=== PATIENT | male | born 1995 | race Two or more races ===

== ENCOUNTER 2024-10-01 12:46 | Emergency (ER) | payer BC ==
[~2024-10-01] VITALS: Ht 182.9 cm; Wt 145.0 kg
--- OUTSIDE RECORDS SUMMARY | ~2024-10-01 | XMS | Continuity of Care Document ---
Demographics + + + | Address | [address] | | | [place] [address] | + + + | Preferred Language | Unknown | + + + | Marital Status | unknown | + + + | Yazidism Affiliation | Unknown | + + + | Race | White | + + + | Ethnic Group | Unknown | + + + Author + + + | Author | [facility] | + + + | Organization | [facility] | + + + | Address | [address] | | | [place] [address] | + + + | Phone | | + + + Care Team Providers + + + + | Care Administrative Supervisor Name | Role | Phone | + + + + Unavailable | Unavailable | + + + + Allergies No information. Encounters No information. Functional Status No information. Immunizations No information. Medications No information. Problems + + + + | date | description | facility | + + + + | 2024-07-28 16:41:15 | Morbid (severe) obesity | [facility] | | | due to excess calories | Center | | | (HCC) | | + + + + | 2024-07-28 16:41:15 | Contact with and | [facility] | | | (suspected) exposure to | Center | | | infections with a | | | | predominantly sexual mode | | | | of transmission | | + + + + Procedures No information. Results/Labs No information. Social History +--------+ + + | date | description | facility | +--------+ + + Vital Signs No information."
[~2024-10-01 12:46] MED LIST: ADDERALL XR 3030 MG PO; AMPHETAMINE SAL10 MG PO; CEPHALEXIN500 M1 PO; ONDANSETRON HCL4 MG PO; PYRIDIUM200 MG PO
[2024-10-01] MEDS ORDERED: ondansetron HCL 4 MG/2 ML VIAL IV ONE (13:00)
[2024-10-01] MEDS ORDERED: HYDROmorphone HCL 1 MG/ML SYR IV ONE (13:00)
[2024-10-01] MEDS ORDERED: SODIUM CHLORIDE 0.9% 1,000 ML IV ONE (13:00)
[2024-10-01 13:03] LABS: BASOPHILS 0.2 % (0-2); EOSINOPHILS 1.2 % (0-6); HEMOGLOBIN 16.3 g/dL (12.0-18.0); LYMPHOCYTES 30.2 % (24-44); MCH 29.9 (27-36); MCHC 35.5 g/dl (30-36); MCV 84.3 fl (81-99); MONOCYTES 10.4 % (0-12); PLATELET COUNT 384 K/uL (140-440); RBC 5.46 M/ul (4.3-5.7); RDW 13.1 (10.5-15.0)
[2024-10-01 13:18] LABS: PARTIAL THROMBOPLASTIN TIME 24.2 Sec (22.9-41.3)
[2024-10-01 13:19] LABS: INR 0.99 (0.80-1.30); PROTIME 12.4 Sec (11.2-14.2)
[2024-10-01 13:24] LABS: ALBUMIN 3.9 g/dL (3.4-5.0); ALBUMIN/GLOBULIN RATIO 1.05 (1.1-2.4); ALKALINE PHOSPHATASE 97 U/L (46-116); ALT (SGPT) 51 U/L (14-59); ANION GAP 15.1 (7-21); AST (SGOT) 23 U/L (15-37); BILIRUBIN, TOTAL 0.9 ng/dL (0.2-1.0); BUN/CREATININE RATIO 11.88 (6.0-28.6); CALCIUM 8.8 mg/dL (8.5-10.1); CARBON DIOXIDE 26 mmol/L (21-32); CHLORIDE 103 mmol/L (98-107); CREATININE, SERUM 1.01 mg/dL (0.70-1.30); GLOMERULAR FILTRATION RATE,EST 103 mL/min (>60); MAGNESIUM 2.2 mg/dL (1.8-2.4); POTASSIUM 3.1 mmol/L (3.5-5.1); PROTEIN, TOTAL 7.6 g/dL (6.4-8.2); UREA NITROGEN 12 mg/dL (7-18)
[2024-10-01 13:38] LABS: INFLUENZA B NAA NEGATIVE (NEGATIVE); RESPIRATORY SYNCYTIAL VIR NAA NEGATIVE (NEGATIVE)
[2024-10-01 13:56] LABS: BILIRUBIN, URINE NEGATIVE (negative); BLOOD/HGB, URINE NEGATIVE (Negative); KETONE, URINE NEGATIVE (Negative); LEUK ESTERASE, URINE NEGATIVE (negative); NITRITE, URINE NEGATIVE (negative); PH, URINE 6.5 (5-7)
[2024-10-01 14:49] VITALS: BP 142/82
--- NOTE | 2024-10-02 21:53 | EKG ---
[facility] [address] [place] [address] Signed Normal sinus rhythm with sinus arrhythmia Normal ECG No previous ECGs available Confirmed by Candy Joshi MD () on 10/02/2024 9:53:31 PM Electronically Signed By: CANDY JOSHI MD 10/02/[id number] PATIENT NAME: CORBY RHODES Electrocardiogram DATE OF : [birth year] PHYSICIAN: CANDY JOSHI MD REPORT #: [id number] REPORT IS CONFIDENTIAL AND NOT TO BE RELEASED WITHOUT AUTHORIZATION
== END 2024-10-01 14:48 | disposition home or self-care (01) ==
LOC: ED 12:46
PROVIDERS: Emergency Medicine
DX: R07.89 Other chest pain (principal); R10.11 Right upper quadrant pain; Z79.899 Other long term (current) drug therapy
CPT/HCPCS: 36415; 71045; 74176; 80053; 81003; 83690; 83735; 83880; 84484; 85025; 85610; 85730; 87502; 93005; 93010; 96374; 96375; 99285-25; J1171; J2405; J7030; U0002

== ENCOUNTER 2025-02-28 03:14 | Emergency (ER) | payer BC ==
[~2025-02-28] VITALS: Ht 182.9 cm; Wt 150.0 kg
[2025-02-28 03:31] LABS: BILIRUBIN, URINE POSITIVE (negative); BLOOD/HGB, URINE LARGE (Negative); KETONE, URINE NEGATIVE (Negative); LEUK ESTERASE, URINE SMALL (negative); NITRITE, URINE POSITIVE (negative)
[2025-02-28 03:36] LABS: EPITHELIAL CELLS, URINE SQUAMOUS 1+ /lpf (0-1+); RED BLOOD CELLS, URINE >50 /hpf (0-5)
[2025-02-28 03:38] LABS: BACTERIA, URINE 1+ /hpf (negative); CASTS, URINE NONE SEEN \\lpf; COLLECTION TYPE, URINE CLEAN CATCH; CRYSTALS, URINE NONE SEEN (0-1+); REFLEX CULTURE, URINE No (No)
[2025-02-28] MEDS ORDERED: PHENAZOPYRIDINE HCL 100 MG TAB PO ONE (03:45)
[2025-02-28] MEDS ORDERED: CEPHALEXIN MONOHYDRATE 500 MG CAP PO ONE (03:45)
[2025-02-28] MEDS ORDERED: CEPHALEXIN500 M1 PO (03:50)
[2025-02-28 04:00] VITALS: BP 165/97
[2025-03-01] MEDS ORDERED: PYRIDIUM200 MG PO (03:26)
== END 2025-02-28 04:00 | disposition home or self-care (01) ==
LOC: ED 03:14
PROVIDERS: Emergency Medicine
DX: N39.0 Urinary tract infection, site not specified (principal); Z79.899 Other long term (current) drug therapy
CPT/HCPCS: 81001; 99283; A9270

== ENCOUNTER 2025-03-01 02:20 | Emergency (ER) | payer BC ==
[~2025-03-01] VITALS: Ht 182.9 cm; Wt 150.0 kg
--- OUTSIDE RECORDS SUMMARY | 2025-03-01 02:23 | XMS ---
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 Merle has no Care Guidelines for this patient. [facility] V[facility] (12 MO.) [facility] NOTE: Visits indicate total known visits. 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
[2025-03-01] MEDS ORDERED: FAMOTIDINE 20 MG/ 2 ML VIAL IV ONE (02:45)
[2025-03-01] MEDS ORDERED: ondansetron HCL 4 MG/2 ML VIAL IV ONE (02:45)
[2025-03-01] MEDS ORDERED: LACTATED RINGER'S 1,000 ML IV ONE (02:45)
[2025-03-01] MEDS ORDERED: MORPHINE SULFATE 4 MG/ML VIAL IV ONE (02:45)
[2025-03-01 02:49] LABS: BASOPHILS 0.5 % (0-2); HEMATOCRIT 42.1 % (35.0-50.0); LYMPHOCYTES 21.7 % (24-44); MCH 29.3 (27-36); MCHC 35.7 g/dl (30-36); MCV 82.2 fl (81-99); MONOCYTES 5.7 % (0-12); NEUTROPHILS 71.1 % (39-80); PLATELET COUNT 254 K/uL (140-440); RBC 5.12 M/ul (4.3-5.7); RDW 13.1 (10.5-15.0)
[2025-03-01 03:04] LABS: ALBUMIN 3.5 g/dL (3.4-5.0); ALBUMIN/GLOBULIN RATIO 1.09 (1.1-2.4); ANION GAP 12.6 (7-21); BILIRUBIN, TOTAL 0.5 mg/dL (0.2-1.0); BUN/CREATININE RATIO 13.82 (6.0-28.6); CALCIUM 8.4 mg/dL (8.5-10.1); CREATININE, SERUM 0.94 mg/dL (0.70-1.30); POTASSIUM 3.6 mmol/L (3.5-5.1); PROTEIN, TOTAL 6.7 g/dL (6.4-8.2)
[2025-03-01] MEDS ORDERED: PYRIDIUM200 MG PO (03:26)
[2025-03-01] MEDS ORDERED: PHENAZOPYRIDINE HCL 100 MG TAB PO ONE (03:30)
[2025-03-01 03:31] LABS: BILIRUBIN, URINE NEGATIVE (negative); BLOOD/HGB, URINE MODERATE (Negative); KETONE, URINE NEGATIVE (Negative); LEUK ESTERASE, URINE SMALL (negative); NITRITE, URINE NEGATIVE (negative)
[2025-03-01 03:36] LABS: EPITHELIAL CELLS, URINE SQUAMOUS 1+ /lpf (0-1+); RED BLOOD CELLS, URINE 21-40 /hpf (0-5)
[2025-03-01 03:37] LABS: BACTERIA, URINE RARE /hpf (negative); CASTS, URINE NONE SEEN \\lpf; COLLECTION TYPE, URINE CLEAN CATCH; CRYSTALS, URINE NONE SEEN (0-1+); REFLEX CULTURE, URINE Yes (No); WHITE BLOOD CELLS, URINE >50 /HPF (0-5)
[2025-03-01 03:40] VITALS: BP 147/86
[2025-03-01 03:45] LABS: AMPHETAMINES, URINE POSITIVE (NEGATIVE); BARBITURATES, URINE NEGATIVE (NEGATIVE); BENZODIAZEPINE, URINE NEGATIVE (NEGATIVE); BUPRENORPHINE, URINE NEGATIVE (NEGATIVE); CANNABINOID, URINE NEGATIVE (NEGATIVE); COCAINE, URINE NEGATIVE (NEGATIVE); ECSTASY, URINE NEGATIVE (NEGATIVE); FENTANYL, URINE NEGATIVE (NEGATIVE); METHADONE, URINE NEGATIVE (NEGATIVE); OPIATES, URINE POSITIVE (NEGATIVE); OXYCODONE, URINE NEGATIVE (NEGATIVE); PHENCYCLIDINE, URINE NEGATIVE (NEGATIVE)
[2025-03-01 05:00] LABS: N. GONORRRHOEAE BY PCR NOT DETECTED (NOT DETECT)
== END 2025-03-01 03:40 | disposition home or self-care (01) ==
LOC: ED 02:20
PROVIDERS: Internal Medicine
DX: N39.0 Urinary tract infection, site not specified (principal)
CPT/HCPCS: 36415; 80053; 80307; 81001; 83690; 85025; 87088; 96374; 96375; 99284-25; J2270; J2405; J7121